=== PATIENT | male | born 1990 ===

== ENCOUNTER 2017-12-08 16:39 | Emergency (ER) | payer MEDICAID ==
[2017-12-08 16:47] VITALS: O2SAT 99
--- NOTE | 2017-12-08 17:49 | ED PDOC ---
HPI: Back Time Seen by Provider: 12/08/17 16:52 Chief Complaint (Nursing): Back Pain Chief Complaint (Provider): Back Pain History Per: Patient History/Exam Limitations: no limitations Onset/Duration Of Symptoms: Days Current Symptoms Are (Timing): Still Present Additional Complaint(s): 27 year old male presents to the emergency department with a complaint of low back pain for 24 hours. He reports that he has been working out regularly. Denies fever or urinary symptoms. Patient reports h/o herniated disc and prior back injury. Otherwise: (-) paresthesias, (-) weakness, (-) acute bowel or bladder dysfunction, (-) fever. Past Medical History Reviewed: Historical Data, Nursing Documentation, Vital Signs Vital Signs: Last Vital Signs Temp 98.5 F 12/08/17 16:42 Pulse 68 12/08/17 16:42 Resp 16 12/08/17 16:42 BP 121/57 L 12/08/17 16:42 Pulse Ox 99 12/08/17 16:42 - Medical History PMH: Back Problems (Herniated discs) - Surgical History Surgical History: No Surg Hx - Family History Family History: States: Unknown Family Hx - Social History Current smoker - smoking cessation education provided: No Alcohol: Social Drugs: Denies - Home Medications Home Medications: Ambulatory Orders Medication Instructions Recorded Cyclobenzaprine [Cyclobenzaprine 10 mg PO TID PRN #15 tab 12/08/17 HCl] Meloxicam [Mobic] 15 mg PO DAILY PRN #30 tab 12/08/17 traMADol [Ultram] 50 mg PO TID PRN #15 tab 12/08/17 - Allergies Allergies/Adverse Reactions: Allergies Allergy/AdvReac Type Severity Reaction Status Date / Time No Known Allergies Allergy Verified 12/08/17 16:42 Review of Systems ROS Statement: Except As Marked, All Systems Reviewed And Found Negative (As per HPI, otherwise negative) Constitutional: Negative for: Fever Genitourinary Male: Negative for: Dysuria, Frequency, Incontinence, Hematuria Musculoskeletal: Positive for: Back Pain Physical Exam - Reviewed Nursing Documentation Reviewed: Yes Vital Signs Reviewed: Yes - Physical Exam Comments: GENERAL APPEARANCE: Patient is awake, alert, oriented x 3, in mild painful distress. SKIN: Warm, dry; (-) cyanosis. EYES: (-) conjunctival pallor. ENMT: Mucous membranes moist. NECK: (-) tenderness, (-) stiffness, (-) lymphadenopathy. CHEST AND RESPIRATORY: (-) rales, (-) rhonchi, (-) wheezes; breath sounds equal bilaterally. HEART AND CARDIOVASCULAR: (-) irregularity; (-) murmur, (-) gallop. ABDOMEN AND GI: Soft; (-) tenderness; (-) palpable mass. BACK: (+) Tenderness to the left paralumbar region with mild spasm. (-) No midline tenderness, (-) direct bony tenderness, (-) deformity. EXTREMITIES: (-) deformity. Distal pulses good bilaterally. NEURO AND PSYCH: Mental status as above. Intact sensation bilaterally; normal strength in extension of the knees, plantar and dorsiflexion of the toes. - ECG O2 Sat by Pulse Oximetry: 99 (RA) Pulse Ox Interpretation: Normal Medical Decision Making Medical Decision Making: Time: 1749 Initial impression: Low back pain Initial plan: Cyclobenzaprine 10 mg pO Naproxen 500 mg PO Tramadol 50 mg PO Reevaluation Time: 1829 Patient is medically clear for discharge and given Rx for Cyclobenzaprine HCl 10 mg, Mobic 15 mg, and Ultram 50 mg. Advised to follow up with primary care doctor or Dr. Pineda Yanez MD in 1-2 days without fail. Advised to take medication as prescribed. Return to the emergency room at any time for any new or worsening symptoms. Patient states he fully agrees with and understands discharge instructions. States that he agrees with the plan and disposition. Verbalized and repeated discharge instructions and plan. I have given the patient opportunity to ask any additional questions. Clinical Impression: Low back pain Scribe Attestation: Documented by Tram Bell, acting as a scribe for Bobbi Zuleta PA-C. Provider Scribe Attestation: All medical record entries made by the Scribe were at my direction and personally dictated by me. I have reviewed the chart and agree that the record accurately reflects my personal performance of the history, physical exam, medical decision making, and the department course for this patient. I have also personally directed, reviewed, and agree with the discharge instructions and disposition. Disposition - Clinical Impression Clinical Impression: Low back pain - Patient ED Disposition Is Patient to be Admitted: No Counseled Patient/Family Regarding: Diagnosis, Need For Followup, Rx Given - Disposition Referrals: Pineda Yanez MD [Staff Provider] - Disposition: Routine/Home Disposition Time: 18:30 Condition: STABLE Additional Instructions: Thank you for letting us take care of you today. You were treated for low back pain. The emergency medical care you received today was directed at your acute symptoms. If you were prescribed any medication, please fill it and take as directed. It may take several days for your symptoms to resolve. Return to the Emergency Department if your symptoms worsen, do not improve, or if you have any other problems. Please contact your doctor in 2 days for re-evaluation and follow up / or call one of the physicians/clinics you have been referred to that are listed on the Patient Visit Information form that is included in your discharge packet. Bring any paperwork you were given at discharge with you along with any medications you are taking to your follow up visit. Our treatment cannot replace ongoing medical care by a primary care provider (PCP) outside of the emergency department. Thank you for allowing the [facility] team to be part of your care today. Prescriptions: Cyclobenzaprine [Cyclobenzaprine HCl] 10 mg PO TID PRN #15 tab PRN Reason: Muscle Spasm Meloxicam [Mobic] 15 mg PO DAILY PRN #30 tab PRN Reason: Pain, Moderate (4-7) traMADol [Ultram] 50 mg PO TID PRN #15 tab PRN Reason: Muscle Spasm Instructions: Low Back Pain (DC) Forms: [employer] ([place]), [facility] ED School/Work Excuse
[2017-12-08] MEDS ORDERED: Naproxen 500 MG TAB PO STA (17:50)
[2017-12-08] MEDS ORDERED: Naproxen 500 MG TAB PO ONE (17:57)
[2017-12-08 18:16] VITALS: BP 119/71; PULSE 76; RESP 18; TEMP 98
== END 2017-12-08 18:15 | disposition home or self-care (01) ==
LOC: H.ER 16:39
DX: M54.5 Low back pain (principal)